=== PATIENT | female | born 1985 | race Caucasian/White ===

== ENCOUNTER → 2024-05-31 15:36 | Outpatient (REF) | payer OTHER, SELFPAY | LOC: HWRAD 15:36 | PROVIDERS: ATTENDING PHYSICIAN Physician Assistant | DX: M25.50 Pain in unspecified joint (principal) | CPT/HCPCS: 73564; 73610 ==

== ENCOUNTER → 2024-08-08 06:20 | Day surgery (SDC) | payer OTHER, SELFPAY | LOC: GI 06:20 | PROVIDERS: ATTENDING PHYSICIAN Internal Medicine Gastroenterology | DX: Z12.11 Encounter for screening for malignant neoplasm of colon (principal); Z80.0 Family history of malignant neoplasm of digestive organs; D12.0 Benign neoplasm of cecum; K63.5 Polyp of colon | CPT/HCPCS: 45385; 88305 ==